=== PATIENT | male | born 1970 | race Asian ===

== ENCOUNTER 2019-06-13 12:45 | Day surgery (SDC) | payer OTHER ==
[2019-06-13] MEDS ORDERED: PROPOFOL 200 MG INJ (15:42)
[2019-06-13] MEDS ORDERED: LIDOCAINE 2% (SDV) 5 ML INJ (15:42)
[2019-06-13] MEDS ORDERED: PROPOFOL 20 ML (15:42)
== END 2019-06-13 16:41 | disposition home or self-care (01) ==
LOC: GIL 12:45
DX: Z12.11 Encounter for screening for malignant neoplasm of colon (principal); D12.7 Benign neoplasm of rectosigmoid junction; K64.8 Other hemorrhoids; K57.30 Diverticulosis of large intestine without perforation or abscess without bleeding; I10 Essential (primary) hypertension; E78.5 Hyperlipidemia, unspecified
CPT/HCPCS: 45380; 88305